=== PATIENT | male | born 1995 | race African-American/Black ===

== ENCOUNTER 2019-02-01 20:49 | Emergency (ER) | payer SELFPAY ==
[2019-02-01 22:08] LABS: Bacteria/HPF None Seen HPF (None Seen); Bilirubin Negative (Negative); Blood, Urine 1+ (Negative); Clarity Turbid (Clear); Glucose, Urine (Dipstick) Normal (Negative); Leukocyte 500 Leu/uL (Negative); Nitrite Negative (Negative); Protein, Urine (Dipstick) 10 mg/dL (Neg-Trace); Squamous Epithelial 0-3 HPF (0-3); Urobilinogen Normal mg/dL (Less than 2); WBC/HPF Greater than 50 HPF (0-3)
[2019-02-01] MEDS ORDERED: Azithromycin 250 MG TAB ONE ×2 (22:40→22:41)
[2019-02-01] MEDS ORDERED: Lidocaine 1% (PF) 30 ML VIAL ONE (22:40)
[2019-02-01] MEDS ORDERED: cefTRIAXone\\ROCEPHIN 250 MG VIAL ONE (22:40)
== END 2019-02-01 23:10 | disposition home or self-care (01) ==
LOC: ERS 20:49
DX: N34.2 Other urethritis (principal); F17.210 Nicotine dependence, cigarettes, uncomplicated; Z71.6 Tobacco abuse counseling
CPT/HCPCS: 81003; 81015; 96372; 99406; J0696; J2001

== ENCOUNTER 2022-06-08 22:14 | Inpatient (IN) | payer OTHER, SELFPAY ==
[2022-06-08] MEDS ORDERED: Ipratropium/Albuterol 3 ML NEB NEB PRN (23:15)
[2022-06-08] MEDS ORDERED: Dextrose 5% in Water 1,000 ML IV PRN (23:15)
[2022-06-08] MEDS ORDERED: Morphine 4 MG/ML VIAL SLOW IVP PRN (23:15)
[2022-06-08] MEDS ORDERED: Dextrose 50% Abboject 50 ML SYRINGE SLOW IVP PRN (23:15)
[2022-06-08] MEDS ORDERED: Morphine 2 MG/ML VIAL SLOW IVP PRN (23:15)
[2022-06-08] MEDS ORDERED: Cyclobenzaprine 10 MG TAB PO PRN (23:21)
[2022-06-08] MEDS ORDERED: traMADol HCl 50 MG TAB PO PRN (23:21)
[2022-06-08 23:27] LABS: #Basophils 0.1 thou/uL (0.0-0.2); #Lymphocytes 1.7 thou/uL (1.20-3.40); #Monocytes 0.4 thou/uL (0.11-0.59); #Neutrophils 5.1 thou/uL (1.40-6.50); %Basophils 0.8 % (0.0-1.0); %Eosinophils 0.5 % (0.0-10.0); %Lymphocytes 23.2 % (21.0-51.0); %Monocytes 5.2 % (0.0-10.0); %Neutrophils 70.4 % (42.0-75.0); Mean Corpuscular HGB CONC 35.6 g/dL (32.0-36.0); Mean Corpuscular Hemoglobin 31.7 pg (27.0-31.0); Mean Corpuscular Volume 89.1 fl (78.0-98.0); Mean Platelet Volume 9.2 fL (7.4-10.4); Platelet Count 205 10x3/uL (130-400); Red Blood Cell (RBC) Count 5.04 mill/uL (4.70-6.10); White Blood Cell (WBC) Count 7.3 10x3/uL (4.8-10.8)
[2022-06-08 23:47] LABS: Anion Gap 19 mmol/L (10-20); BUN (Urea Nitrogen) 12 mg/dL (8.9-20.6); Calc. Creatinine Clearance 0 mL/min (70-130); Calcium 9.4 mg/dL (7.8-10.44); Carbon Dioxide 20 mmol/L (22-29); Chloride 104 mmol/L (98-107); Estimated GFR 75; Glucose 83 mg/dL (70-105); Potassium 3.8 mmol/L (3.5-5.1); Sodium 139 mmol/L (136-145)
[2022-06-09] MEDS ORDERED: Morphine 4 MG/ML VIAL ONE (00:44)
[2022-06-09 01:34] VITALS: BMI 27.4
[2022-06-09] MEDS: Sodium Chloride 0.9% 1,000 ML IV SCH ×3 (01:53→13:55)
[2022-06-09] MEDS: traMADol HCl 50 MG TAB PO SCH ×5 (01:53→23:33)
[2022-06-09] MEDS: Acetaminophen 500 MG TAB PO SCH ×5 (01:53→23:32)
[2022-06-09] MEDS ORDERED: Sodium Chloride 0.9% 1,000 ML IV SCH (02:00)
[2022-06-09 06:16] LABS: #Basophils 0.1 thou/uL (0.0-0.2); #Lymphocytes 1.8 thou/uL (1.20-3.40); #Monocytes 0.6 thou/uL (0.11-0.59); %Basophils 0.5 % (0.0-1.0); %Eosinophils 0.1 % (0.0-10.0); %Lymphocytes 18.9 % (21.0-51.0); %Monocytes 6.5 % (0.0-10.0); %Neutrophils 73.9 % (42.0-75.0); Hemoglobin 14.6 g/dL (14.0-18.0); Mean Corpuscular HGB CONC 33.5 g/dL (32.0-36.0); Mean Corpuscular Hemoglobin 29.8 pg (27.0-31.0); Mean Corpuscular Volume 89.1 fl (78.0-98.0); Mean Platelet Volume 9.1 fL (7.4-10.4); Platelet Count 215 10x3/uL (130-400); White Blood Cell (WBC) Count 9.5 10x3/uL (4.8-10.8)
[2022-06-09 06:30] LABS: INR-International Normal Ratio 1.1; PTT 25.4 sec (22.9-36.1); Prothrombin Time 14.6 sec (12.0-14.7)
[2022-06-09 06:37] LABS: Anion Gap 17 mmol/L (10-20); BUN (Urea Nitrogen) 9 mg/dL (8.9-20.6); Calc. Creatinine Clearance 133 mL/min (70-130); Calcium 8.6 mg/dL (7.8-10.44); Carbon Dioxide 18 mmol/L (22-29); Chloride 111 mmol/L (98-107); Estimated GFR 94; Glucose 82 mg/dL (70-105); Sodium 142 mmol/L (136-145)
[2022-06-09] MEDS ORDERED: CEFAZOLIN 2 GM in Sodium Chloride 0.9% 100 ML IVPB SCH (07:15)
[2022-06-09] MEDS: Senokot S 8.6-50 MG TAB PO SCH ×2 (08:06→20:29)
[2022-06-09] MEDS: Polyethylene Glycol 3350 17 GM Packet PO SCH (08:06)
[2022-06-09] MEDS: Famotidine/PF 20 mg/2ml Vial SLOW IVP SCH ×2 (08:48→20:28)
[2022-06-09] MEDS ORDERED: fentaNYL PF 100 MCG/2 ML SYRINGE ONE (11:12)
[2022-06-09] MEDS ORDERED: Dexmedetomidine 200 MCG/2 ML VIAL ONE (11:12)
[2022-06-09] MEDS ORDERED: Midazolam HCl 2 mg/2 ml Vial ONE (11:38)
[2022-06-09] MEDS ORDERED: Sodium Chloride 0.9% 100 ML ONE (11:49)
[2022-06-09] MEDS ORDERED: CEFAZOLIN 2 GM VIAL ONE (11:49)
[2022-06-09] MEDS ORDERED: Dexamethasone 20 MG/5 ML VIAL ONE (12:06)
[2022-06-09] MEDS ORDERED: Ondansetron PF 4 MG/2 ML Vial ONE (12:06)
[2022-06-09] MEDS ORDERED: ePHEDrine Sulfate 50 MG/10 ML VIAL ONE (12:06)
[2022-06-09] MEDS ORDERED: PROPOFOL 200 MG/20 ML VIAL ONE (12:06)
[2022-06-09] MEDS ORDERED: Bupivacaine HCl 0.5%/Epinephrine 1:200,000/PF 30 ml Vial ONE (12:35)
[2022-06-09] MEDS ORDERED: Fentanyl 250 MCG/5 ML VIAL ONE (13:06)
[2022-06-09] MEDS ORDERED: Ketorolac Tromethamine 30 MG/ML VIAL ONE (13:06)
[2022-06-09] MEDS ORDERED: Promethazine HCl 25 MG/ML VIAL IM PRN (13:11)
[2022-06-09] MEDS ORDERED: Ketorolac Tromethamine 30 MG/ML VIAL IVP PRN (13:11)
[2022-06-09] MEDS ORDERED: Ondansetron HCl/PF 4 MG/2 ML Vial IVP PRN (13:11)
[2022-06-09] MEDS ORDERED: fentaNYL 50 mcg/mL 1 mL Vial ONE ×2 (13:15→13:24)
[2022-06-09] MEDS: CEFAZOLIN 2 GM in Sodium Chloride 0.9% 100 ML IVPB SCH (20:29)
[2022-06-10] MEDS: Sodium Chloride 0.9% 1,000 ML IV SCH ×3 (02:32→13:28)
[2022-06-10] MEDS: CEFAZOLIN 2 GM in Sodium Chloride 0.9% 100 ML IVPB SCH (03:50)
[2022-06-10] MEDS: Acetaminophen 500 MG TAB PO SCH ×2 (05:23→11:12)
[2022-06-10] MEDS: traMADol HCl 50 MG TAB PO SCH ×2 (05:24→11:12)
[2022-06-10] MEDS: Senokot S 8.6-50 MG TAB PO SCH ×2 (08:38→13:27)
[2022-06-10] MEDS: Famotidine/PF 20 mg/2ml Vial SLOW IVP SCH (08:38)
[2022-06-10] MEDS: Polyethylene Glycol 3350 17 GM Packet PO SCH (08:38)
[2022-06-10 12:48] VITALS: BP 137/85; TEMP 98.8
== END 2022-06-10 14:55 | disposition home or self-care (01) | DRG 494 ==
LOC: ERS 22:14 → SURG A 23:19
PROVIDERS: ADMIT Surgery; ATTEND Surgery
PROC: 0QSK04Z Reposition Left Fibula with Internal Fixation Device, Open Approach (ICD-10-PCS; principal; 2022-06-09)
DX: S82.62XA Displaced fracture of lateral malleolus of left fibula, initial encounter for closed fracture (principal); W01.0XXA Fall on same level from slipping, tripping and stumbling without subsequent striking against object, initial encounter
CPT/HCPCS: 29515; 36415; 71045; 80048; 85025; 85610; 85730; 96374; C1713; C1874; J1100; J1885; J2250; J2270; J2405; J2704; J3010; J3490; J7050; S0028

== ENCOUNTER 2022-09-17 06:37 | Emergency (ER) | payer SELFPAY | END 2022-09-17 08:21 | disposition home or self-care (01) | LOC: ERS 06:37 | DX: T16.1XXA Foreign body in right ear, initial encounter (principal); F17.210 Nicotine dependence, cigarettes, uncomplicated | CPT/HCPCS: 99282 ==